=== PATIENT | male | born 1955 | race Caucasian/White ===

== ENCOUNTER 2018-06-07 11:35 | Inpatient (IN) | payer OTHER, SELFPAY ==
[2018-06-07] VITALS (26 sets, daily range): BP systolic 103–137; BP diastolic 73–97; PULSE 66–97; RESP 10–20; TEMP 36.4–37.3; O2SAT 95–100; BMI 25.0; BMI 24.6
--- NOTE | 2018-06-07 11:38 | EKG12_ITS ---
Test Reason : RIGHT SIDED EKG Blood Pressure : / mmHG Vent. Rate : 080 BPM Atrial Rate : 080 BPM P-R Int : 178 ms QRS Dur : 108 ms QT Int : 400 ms P-R-T Axes : 036 035 115 degrees QTc Int : 461 ms Normal sinus rhythm Anterolateral infarct , age undetermined Abnormal ECG Confirmed by MANUEL LUX, MARQUIS ([id number]), online content editor KIM PIERSON ([id number]) on 06/13/2018 4:15:39 PM Referred By: Kuldip Wooten Confirmed By:MARQUIS JACKSON MD
--- NOTE | 2018-06-07 11:44 | EKG12_ITS ---
Test Reason : CP Blood Pressure : / mmHG Vent. Rate : 076 BPM Atrial Rate : 076 BPM P-R Int : 178 ms QRS Dur : 116 ms QT Int : 426 ms P-R-T Axes : 057 041 098 degrees QTc Int : 479 ms Normal sinus rhythm with sinus arrhythmia Left ventricular hypertrophy with QRS widening and repolarization abnormality Anterior infarct , age undetermined Abnormal ECG Confirmed by MANUEL LUX, MARQUIS ([id number]), commercial production editor KIM PIERSON ([id number]) on 06/13/2018 4:16:08 PM Referred By: Kuldip Wooten Confirmed By:MARQUIS JACKSON MD
[2018-06-07] MEDS: TICAGRELOR 90 MG TABLET 180 MG PO (11:45)
[2018-06-07 11:46] LABS: Bedside Glucose 186 mg/dL (70-110)
[2018-06-07] MEDS: Heparin Injection (Vial) 5,000 UNIT/ML VIAL 4000 UNIT IV (11:47)
[2018-06-07] MEDS: Ondansetron 4 MG/2 ML Vial IV (11:48)
--- NOTE | 2018-06-07 11:50 | RAD_ITS ---
STUDY: X-RAY CHEST REASON FOR EXAM: Male, 62 years old. Left-sided chest pain TECHNIQUE: Single AP portable view of the chest. COMPARISON: None. FINDINGS: The lungs are clear and expanded. There is no demonstrated pleural abnormality. Normal size heart. Normal mediastinum and rafita. Normal visualized pulmonary arteries. Normal visualized aortic arch and descending thoracic aorta. Normal visualized thoracic spine. Normal visualized ribs, clavicles, and shoulders. There is no demonstrated abnormality of the visualized soft tissue structures of the upper abdomen. RAD/Chest 1 View (Portable) IMPRESSION: Normal x-ray examination of the chest. Electronically Signed: Isaias Granger DO at 12:24 EDT Tel , Service support ,
--- NOTE | 2018-06-07 11:51 | ED.RN ---
attempted to call pt's with number provided. [phone]
--- NOTE | 2018-06-07 11:55 | ED.RN ---
THROUGHOUT PATIENT CARE, PATIENT IS CONFUSED, REPETITIVE, AND NOT EFFECTIVELY ANSWERING QUESTIONS. PT UNSURE OF WHERE HE WORKS OR LIVES. PT MADE AWARE SEVERAL TIMES THAT HE WOULD BE TAKEN TO THE [facility]PER[facility] AND ATTEMPTS ARE BEING MADE TO CONTACT HIS .
[2018-06-07 12:06] LABS: Absolute Lymphocyte Count 1.91 X10^3/ul (0.83-4.51); Basophil# 0.03 X10^3/uL; Basophil% 0.4 % (0-1); Eosinophil# 0.13 X10^3/uL; Eosinophils% 1.6 % (0-5); Hemoglobin 15.2 g/dl (13.0-16.5); Lymphocyte # 1.91 X10^3/ul (4.0); Mean Corp Hgb Conc 35.3 g/gl (32-36); Mean Corpuscular Hgb 30.5 pg (27.0-32.0); Mean Corpuscular Volume 86.3 fL (80-94); Mean Platelet Vol. 9.2 fl (6.2-12.0); Monocyte# 0.83 X10^3/uL; Monocyte% 10.4 % (0-10); Neutrophil # 5.04 X10^3/uL (2.7-7.7); Neutrophil % 63.5 % (47-70); Platelet Count 338 K/mm3 (150-450); RBC Distribution Width SD 37.1 fl (35.1-43.9); Red Blood Count 4.98 M/mm3 (4.6-6.2)
[2018-06-07 12:07] LABS: POSITIVE COUNT NO; POSITIVE DIFFERENTIAL NO; POSITIVE MORPHOLOGY NO
[2018-06-07 12:13] LABS: Prothrombin Time (Protime)PT. 13.2 SECONDS (11.7-14.9)
[2018-06-07 12:14] LABS: Partial Thromboplast Time 23.6 Seconds (24.1-36.2)
[2018-06-07 12:17] LABS: Anion Gap 8 (5-15); BUN 13 mg/dL (7-18); BUN/Creat Ratio 10.1 RATIO (10-20); Calcium,Total 8.3 mg/dL (8.5-10.1); Chloride 102 mmol/L (98-107); Creatinine, Serum 1.29 mg/dL (0.70-1.30); EST Glomerular Filtration Rate 60 mL/min (>60); Est Glom Filt Rate - Afr Amer 73 mL/min (>60); Estimated Creatinine Clearance 62.09 ml/min; Glucose 214 mg/dL (74-106); Potassium 3.3 mmol/L (3.5-5.1); Sodium Level 136 mmol/L (136-145)
--- NOTE | 2018-06-07 12:18 | ED.DCSUM_ITS ---
- ER Visit Summary Date of Service: 06/07/18 Chief Complaint: Pain History of Present Illness: The patient is a 62 M with left side chest pain that started suddenly at work. Associated with nausea, sweats, and he appeared ashen per EMS. He never had this before. He said he has been having chest pain on a nd off recently. No history of coronary disease. No history of aortic or valvular disease. No history of blood clots. No recent hospitalization, travel, immobilization. Patient denies shortness of breath, cough, or sputum. Denies fevers. Denies pain anywhere else. Takes an aspirin daily. Physical Examination: Afebrile and vital signs are unremarkable. Patient is diaphoretic. Holding an emesis bag. Heart regular rate and rhythm. Lungs clear. Abdomen soft and nontender. Pulses strong and equal bilaterally. Calves soft and supple. Test Results: EKG showed sinus rhythm at a rate of 76. He does have elevation in aVR and V1 with lateral depression. Blood work and chest x-ray are pending. His mediastinum appears to be normal. Emergency Department Course and Treatment: Patient was discussed with Dr. Germain. I was concerned for ACS, but he did not meet STEMI criteria. Patient was treated with aspirin, Brilinta, heparin, Zofran, and nitroglycerin. He was admitted to the [facility] for further care. Treatment Plan: As above Disposition: Admission Impression: 1. Chest pain This note was generated with [employer] dictation software. It may contain incorrect words, spelling, and punctuation that were not noted in review of the chart prior to signing ED Disposition - Plan for ED Patient: Referrals: Care Physician,No Primary [Primary Care Provider] -
--- NOTE | 2018-06-07 13:37 | ECHOCS_ITS ---
Reason For Study: CAD/ASHD Procedure This was a 2D Doppler, Color Flow transthoracic echocardiogram. Contrast injection was performed. Exam performed portable in ICU/CCU. Left Ventricle Mildly dilated left ventricle. The estimated ejection fraction is 45-50 %. Stage 1 diastolic dysfunction. Mid-anteroseptal : Severely Hypokinetic. Anterior Gilbert : Akinetic. There are regional wall motion abnormalities as specified. Right Ventricle Normal size and thickness. Normal systolic function. Atria Normal left atrium. Normal right atrium. Normal atrial septum. Mitral Valve The mitral valve is structurally normal. No prolapse or stenosis seen. Tricuspid Valve Normal tricuspid valve. Unable to estimate RV systolic pressure due to inadequate jet, pulmonary artery pressure probably normal. Aortic Valve Bicuspid aortic valve. Severe diffuse aortic valve thickening. Severe focal aortic valve calcification. Severe restriction of the aortic valve. Severe aortic stenosis. Peak aortic valve gradient 85 mmHg. Mean aortic valve gradient 53 mmHg. Calculated aortic valve area (continuity equation) is 0.82 cm2. Pulmonic Valve Normal pulmonic valve. Great Vessels Normal aortic root. Normal arch. Normal inferior vena cava. Inferior vena cava collapse with sniff. Pericardium/Pleural No pericardial effusion. Medication Definity0.7ml given slow IV push to enhance endocardial definition. MMode/2D Measurements & Calculations LVIDd: 5.0 cm IVSd: 1.3 cm LVOT diam: 2.3 cm LVIDs: 3.6 cm LVPWd: 1.2 cm RVDd: 3.2 cm FS: 28.3 % LVOT area: 4.1 cm2 Ao root diam: 2.9 cm LAV(MOD-bp): 40.2 ml LVAd ap4: 34.9 cm2 LA dimension: 3.4 cm LAV(MOD-bp) Indexed: 20.5 ml/m2 EDV(MOD-sp4): 111.7 ml LAV(MOD-sp2): 31.9 ml EDV(sp4-el): 115.0 ml LAV(MOD-sp4): 41.2 ml LVAs ap4: 25.5 cm2 ESV(MOD-sp4): 64.2 ml ESV(sp4-el): 66.5 ml EF(MOD-sp4): 42.5 % EF(sp4-el): 42.1 % SV(MOD-sp4): 47.5 ml SV(sp4-el): 48.5 ml LA A4 area: 16.3 cm2 RA A4 area: 11.4 cm2 Doppler Measurements & Calculations MV E max guillermo: 53.1 cm/sec Lat Peak E' Guillermo: 3.4 cm/sec Med Peak E' Guillermo: 4.8 cm/sec MV A max guillermo: 75.4 cm/sec E/E' lat: 15.5 E/E' med: 11.0 MV E/A: 0.70 Ao V2 max: 459.8 cm/sec LV V1 max: 90.9 cm/sec SV(LVOT): 96.6 ml Ao max P.6 mmHg LV V1 max P.3 mmHg Ao V2 mean: 348.0 cm/sec LV V1 mean P.1 mmHg Ao mean P.3 mmHg LV V1 mean: 67.9 cm/sec Ao V2 VTI: 112.4 cm LV V1 VTI: 23.3 cm MARGOTH(I,D): 0.86 cm2 MARGOTH(V,D): 0.82 cm2 PA V2 max: 79.3 cm/sec Interpretation Summary Mildly dilated left ventricle. The estimated ejection fraction is 45-50 %. Mid-anteroseptal : Severely Hypokinetic. Anterior Gilbert : Akinetic. Stage 1 diastolic dysfunction. Unable to estimate RV systolic pressure due to inadequate jet, pulmonary artery pressure probably normal. Bicuspid aortic valve. Severe restriction of the aortic valve. Severe aortic stenosis. Peak aortic valve gradient 85 mmHg. Mean aortic valve gradient 53 mmHg. Calculated aortic valve area (continuity equation) is 0.82 cm2. The study was technically difficult. Contrast injection was performed. There is no comparison study available. Ordering Physician: Henrry Germain Performed By: Sarah Mirza, SALIMA, RVT
--- NOTE | 2018-06-07 13:37 | EKG12_ITS ---
Test Reason : POST PCI Blood Pressure : / mmHG Vent. Rate : 069 BPM Atrial Rate : 069 BPM P-R Int : 168 ms QRS Dur : 096 ms QT Int : 450 ms P-R-T Axes : 052 062 105 degrees QTc Int : 482 ms Normal sinus rhythm Left ventricular hypertrophy with repolarization abnormality Anterior infarct , age undetermined Abnormal ECG When compared with ECG of 07-JUN-2018 11:38, MANUAL COMPARISON REQUIRED, DATA IS UNCONFIRMED Confirmed by MANUEL LUX, MARQUIS ([id number]), business editor KIM PIERSON ([id number]) on 06/13/2018 5:23:37 PM Referred By: Kuldip Wooten Confirmed By:MARQUIS JACKSON MD
--- NOTE | 2018-06-07 13:38 | CL.I_ITS ---
Patient Name: ODALIS GRAFF Study Date: 06/07/2018 Performing: Henrry Germain MD Ht: 70.07 inches 178 cm : 1955 Wt: 174.17 lbs 79 kg Age: 62 Gender: male BSA: 1.97 PROCEDURE(S) PERFORMED PF99-UBI/COR/LV XA51-CVW W OR WO PTCA, SINGLE CORONARY ARTERY CLINICAL PROFILE AND CO-MORBIDITIES Patient presents with NSTEMI for urgent cardiac cath Indications: ACS > 24 hrs, Suspected CAD, New Onset Angina <= 2 months Heart Failure: None Stress/Imaging Stress/Image Study Performed: No Angina Classification Anginal Classification w/in 2 Weeks: CCS IV CAD Presentations: Unstable angina. Non-STEMI. Symptom onset Date/Time: 06/07/2018 Time Not Availa ble Comorbidities/Risk Factors: Hypertension Dyslipidemia CONCLUSIONS Normal LV size, wall motion,and systolic function Normal Left Ventricular systolic function LVEF: by LV gram 65 % Elevated Left Ventricular End Diastolic Pressure Successful PTCA/HAFSA mid LAD with a 2.5 x 20 Promus Synergy, post dilated with a 3.0 x 12 NC Balloon a t 9 lucero; 75%-->0%, no dissection. Successful PTCA/HAFSA proximal LAD with a 3.0 x 16 Promus Synergy stent, post dilated with a 3.0 x 12 N C balloon; 85%-->0%, no dissection. Successful PCI with PTCA to the ostial DIAG#2 with a 2.0 x 12 ballloon after mid LAD stent placed; 85 %-->40%, no dissection. No evidence of proximal LAD stent encroachment on ostial LCX with passage of 2.0 balloon. RECOMMENDATIONS Referred for immediate PCI Highly recommend quitting all tobacco products Follow up with primary bench tool maker Risk factor modification ASA Indefinitley Plavix for at least 12 months Routine post interventional care Refer for Outpatient Cardiac Rehab Manual sheath removal per protocol 2D echo to eval aortic valve; ?Bicuspid Aortic valve. Manual sheath removal given pt's shallow groin. DESCRIPTION OF PROCEDURE The patient arrived to the procedure lab. The risks and benefits of the procedure as well as a full d escription of our services here and lack of surgical backup were fully explained to the patient and/o r their significant other prior to the catheterization. The Timeout was completed, verifying the niesha ect patient and procedure. The patient's procedural site was prepped and draped in the usual fashion. Local anesthetic was given subcutaneously to right groin region with Lidocaine 2%. Using a modified Seldinger technique, arterial access was obtained via the right femoral artery, a 4Fr sheath was inse rted. Left Coronary Artery selective angiography was performed in multiple views using a 4 Fr. JL5 c atheter. Right Coronary Artery selective angiography was then performed in multiple views using a 4 F r. 3DRC catheter. Left Ventriculography was performed in MATTHEW projection using a 6 Fr. Pigtail cathete r. LV to AO pullback pressures were then recordedThe images were reviewed and options discussed. A decision was then made to proceed with an Intervention, IVUS or other adjunct procedure. EBU 3.5 Guide catheter was inserted and engaged into the LCA. BMW Guide wire was advanced to the LAD. 2x12 Emerge Balloon catheter was inserted. Balloon catheter was advanced across lesion in the LA D, distal. PTCA balloon inflated at 6 atms for 10 secs. Balloon catheter was repositioned to addition al lesion in the LAD, proximal. PTCA balloon inflated at 7 atms for 8 secs. PTCA balloon inflated at 7 atms for secs. 2x12 Emerge Balloon catheter was inserted. Balloon catheter was repositioned to add itional lesion in the second diagonal, ostial. PTCA balloon inflated at 6 atms for 8 secs. Angiogram performed post balloon dilatation. 2.5x20 Synergy Drug Eluting stent was inserted. Drug Eluting stent was advanced across the lesion in the LAD, mid. 3x12 NC Emerge Balloon catheter was inserted. Balloo n catheter was inserted post stent. Angiogram performed post balloon dilatation. 2x12 Emerge Balloon catheter was inserted. Balloon catheter was advanced across lesion in the second diagonal, ostial. PTCA balloon inflated at 6 atms for 30 secs. PTCA balloon inflated at 6 atms for 45 secs. BMW Guide wire was repositioned from Diagonal to the Circumflex 3x16 Synergy Drug Eluting stent was inse rted. Drug Eluting stent was advanced across the lesion in the LAD, proximal. Angiogram performed pos t stent deployment. 3x12 NC Emerge Balloon catheter was inserted. Balloon catheter was inserted post stent. Balloon catheter was advanced across lesion in the LAD, proximal. PTCA balloon inflated at 10 atms for 12 secs. CORONARY ANGIOGRAPHY DOMINANCE: Right Dominant LEFT HEART ASSESSMENT Left Ventricular Ejection Fraction: by LV Gram 65 % Normal Left Ventricular systolic function LVEDP: 26 mmHg Normal LV wall motion LEFT MAIN: Angiographically normal LEFT ANTERIOR DECENDING ARTERY: PROX LAD: 85 % Stenosis MID LAD: 75 % Stenosis DIAGONAL 2: Ostial - 75 % Stenosis CIRCUMFLEX ARTERY: MID CIRC: 50 % Stenosis RIGHT CORONARY ARTERY: Angiographically normal COLLATERAL FLOW: Collateral flow from Right to Left VALVE FINDINGS: Aortic Valve Stenosis - moderate INTERVENTION INFORMATION LESION SITE: LAD (Mid) Lesion Complexity: High/C, lesion at bifurcation: Yes, thrombus present: No, lesion length: 20 mm, cu lprit lesion: No Pre Stenosis: 75 % Pre intervention GRAEME flow: 3 PROCEDURE: Drug Eluting Stent with pre and post dilatation Post Stenosis: 0 % Post intervention GRAEME flow: 3 Lesion Devices: Duffy .014 BMW Mcintosh Straight 190cm Medtronic 6 Fr EBU3.5 100cm Guide Catheter Duffy .014 BMW Mcintosh Straight 190cm Teodoro Sci NC EMERGE MR 2.00x12 BALLOON Teodoro Sci Synergy MR HAFSA 2.50x20 Teodoro Sci NC EMERGE MR 3.00x12 BALLOON LESION SITE: LAD (Proximal) Lesion Complexity: High/C, lesion at bifurcation: No, thrombus present: No, lesion length: 16 mm, cul prit lesion: Yes Pre Stenosis: 85 % Pre intervention GRAEME flow: 3 PROCEDURE: Drug Eluting Stent with pre and post dilatation Post Stenosis: 0 % Post intervention GRAEME flow: 3 Lesion Devices: Medtronic 6 Fr EBU3.5 100cm Guide Catheter Duffy .014 BMW Mcintosh Straight 190cm Teodoro Sci NC EMERGE MR 2.00x12 BALLOON Teodoro Sci NC EMERGE MR 3.00x12 BALLOON Teodoro Sci Synergy MR HAFSA 3.00x16 LESION SITE: 2nd Diagonal (Ostial) Lesion Complexity: Non-High/Non-C, lesion at bifurcation: Yes, thrombus present: No, lesion length: 8 mm, culprit lesion: No Pre Stenosis: 75 % Pre intervention GRAEME flow: 3 PROCEDURE: Balloon Angioplasty 40 % Post intervention GRAEME flow: 3 Lesion Devices: Medtronic 6 Fr EBU3.5 100cm Guide Catheter Teodoro Sci NC EMERGE MR 2.00x12 BALLOON COMPLICATIONS No Complications PROCEDURE MEDICATIONS Oxygen: 2 L/min via nasal cannula Oxygen: 4 L/min via nasal cannula Heparin 6000 unit(s) IV 06/07/2018 12:14:29 Nitro 200 mcg IC 06/07/2018 12:32:33 Nitro 200 mcg IC 06/07/2018 12:32:33 Nitro 200 mcg IC 06/07/2018 12:41:45 Potassium Chloride 10 mEq in 100cc NS 06/07/2018 12:22:28 IV Bolus: .9 NaCl 1000 ml total 06/07/2018 13:27:09 SUMMARY OF HEMODYNAMIC DATA Time AIR REST ECG 12:03:30 AO 114/90 (101) SA 12:11:03 LV 167/-8, 26 13:11:37 LV 166/-7, 22 13:11:44 LVp 165/-6, 23 13:11:51 AOp 101/64 (79) 13:11:56 Signed By Henrry Germain MD On 06/07/2018 13:37:00 Henrry Germain MD
--- NOTE | 2018-06-07 13:42 | HP.PCM_ITS ---
Problem List (1) Acute coronary syndrome Status: Acute (2) Prostate cancer Status: Chronic (3) Aortic stenosis Status: Acute History of Present Illness Date of Admission: 06/07/18 Chief Complaint: Chest pain The patient is a 62 year old M with history of prostate cancer in remission came to ED when he got sudden onset of chest pain at work. Patient did also associated nausea, sweating, dizziness and felt mild shortness of breath. Patient has been having chest pain on and off for last and had appointment for scheduled stress test 2-3 weeks this week. In ED, EKG shows normal sinus rhythm with ST elevation in aVR with ST depression V4 to V6 and inferior leads. Voice And Data Technician was consulted and patient was taken to Communications Consultant given the patient did not meet criteria for STEMI. basic lab work shows troponin 0 0.252, glucose 186. Coronary angiogram showed EF 65% with normal LV systolic function. Proximal LAD 85%, mid LAD 75%, diagonal 2 ostial 75%. Mid circumflex 50%. Left Main normal RCA normal. Collateral flow from right to left. Patient had stents in mid LAD and proximal LAD and second diagonal. Patient is further being admitted in ICU. Past Medical History Past Medical History (Chronic Problems): Chronic Problems Prostate cancer (Chronic) Allergies Penicillins Allergy (Verified 06/07/18 11:36) Hives Home Medications: Ambulatory Orders Medication Instructions Recorded Aspirin [Aspirin, Baby] 81 mg PO DAILY@0800 06/07/18 Smoking Status: Former smoker Review of Systems Constitutional: Denies: Chills, Fever, Weight Change HEENT: Denies: Head Aches, Sinus Congestion, Sinus Drainage Cardiovascular: Reports: Chest Pain. Denies: Palpitations Respiratory: Denies: Cough, Shortness of breath at rest, Sputum production Gastrointestinal: Denies: Abdominal Pain, Nausea, Vomiting Genitourinary: Denies: Dysuria Musculoskeletal: Denies: Joint Pain, Joint Tenderness Skin: Denies: Rash, Wounds Neurological: Denies: Numbness, Tingling, Focal weakness Psychiatric: Denies: Anxiety, Depression, Homicidal Ideations, Suicidal Ideations Hematologic/ Lymphatic: Denies: Easy Bruising, Easy Bleeding VTE Information - Inpt Only VTE Present on Admission: No VTE Mechan Device Prophylaxis: SCD's VTE Pharm Prophylaxis ordered?: Yes Patient Problems: Active and Suspected Problems Acute coronary syndrome (Acute) Aortic stenosis (Acute) - Physical Exam General: Alert, Oriented x3, Cooperative HEENT: Atraumatic, PERRLA, EOMI, Normocephalic Neck: Supple, No JVD, Negative Carotid Bruits Lungs: Clear to auscultation, Normal air movement Cardiovascular: Regular rate, Regular Rhythm, Normal S1, Normal S2, Murmur - Mid systolic murmur with radiation to carotids. Abdomen: Bowel Sounds Present, Soft, Non Tender, Non-Distended Extremities: No edema, Capillary Refill Less than 3 Seconds Skin: No rashes, No breakdown Musculoskeletal: No Tenderness to Palpation of Joints or Extremities Lymphatic: No Cervical, Supraclavicular, or Inguinal Adenopathy Neurological: Cranial nerves II-XII grossly intact, Deep Tendon Reflexes 2+/4 and Symmetrical, Neuro grossly intact Psych/Mental Status: Normal Affect, Appropriate Vital Signs Temp Pulse Resp BP Pulse Ox 97.6 F L 76 12 137/95 H 100 06/07/18 11:37 06/07/18 11:37 06/07/18 11:37 06/07/18 11:37 06/07/18 11:48 Oxygen Flow Rate (L/min) 4 Oxygen Delivery Method Nasal Cannula Weight: 174 lb 6.4 oz Body Mass Index (BMI) 25.0 Laboratory Tests Past 24 Hrs 06/07/18 06/07/18 06/07/18 11:39 11:39 11:39 WBC 8.0 RBC 4.98 Hgb 15.2 Hct 43.0 MCV 86.3 MCH 30.5 MCHC 35.3 RDW 12.0 RDW Differential 37.1 Plt Count 338 MPV 9.2 Immature Gran % (Auto) 0.100 Neut % (Auto) 63.5 Lymph % (Auto) 24.0 [place] % (Auto) 10.4 H Eos % (Auto) 1.6 Baso % (Auto) 0.4 Absolute Neuts (auto) 5.0 Absolute Lymphs (auto) 1.91 Total Counted Not Reportable PT 13.2 INR 1.0 APTT 23.6 L Sodium 136 Potassium 3.3 L Chloride 102 Carbon Dioxide 26.0 Anion Gap 8 BUN 13 Creatinine 1.29 Estim Creat Clear Calc 62.09 Est GFR (MDRD) Af Amer 73 Est GFR (MDRD) Non-Af 60 BUN/Creatinine Ratio 10.1 Glucose 214 H Calcium 8.3 L Troponin I 0.252 H POC Glucose 06/07/18 11:42 POC Glucose 186 H Assessment/Plan All Active Problems Acute coronary syndrome (Acute) Aortic stenosis (Acute) he patient is a 62 year old M with history of prostate cancer in remission came to ED when he got sudden onset of chest pain at work. Patient did also associated nausea, sweating, dizziness and felt mild shortness of breath. Patient has been having chest pain on and off for last and had appointment for scheduled stress test 2-3 weeks this week. In ED, EKG shows normal sinus rhythm with ST elevation in aVR with ST depression V4 to V6 and inferior leads. Voice And Data Technician was consulted and patient was taken to Communications Consultant given the patient did not meet criteria for STEMI. basic lab work shows troponin 0 0.252, glucose 186. Coronary angiogram showed EF 65% with normal LV systolic function. Proximal LAD 85%, mid LAD 75%, diagonal 2 ostial 75%. Mid circumflex 50%. Left Main normal RCA normal. Collateral flow from right to left. Patient had stents in mid LAD and proximal LAD and second diagonal. Patient is further being admitted in ICU. 1. Acute coronary syndrome, non-STEMI: Patient is being admitted in ICU. On aspirin, Brilinta, beta-pierre and statin. 2D echo is being ordered. Fasting lipid profile, TSH are ordered. There is sheath in place in the right femoral artery. 2. Hyperglycemia: A1c tomorrow a.m. Glucose is 214 although patient denies history of diabetes mellitus type 2. 3. Mild hypokalemia: K3.3; potassium being replaced and monitored. 4. New diagnosis of aortic stenosis: Echo and further anatomic and functional definition of aortic stenosis. 5. Prostate cancer status post radiotherapy: Patient gets his care for prostate cancer in [facility]. He was told he is in remission and had possible brachytherapy in recent past. 6. DVT prophylaxis: On Lovenox 40 mg subcu daily; starting 24 hours after the procedure Clinical Impression(s) from Imaging Studies Chest X-Ray 06/07/18 11:50 IMPRESSION: Normal x-ray examination of the chest. Laboratory Results 06/07/18 11:39: WBC 8.0, RBC 4.98, Hgb 15.2, Hct 43.0, MCV 86.3, MCH 30.5, MCHC 35.3, RDW 12.0, RDW Differential 37.1, Plt Count 338, MPV 9.2, Immature Gran % (Auto) 0.100, Neut % (Auto) 63.5, Lymph % (Auto) 24.0, [place] % (Auto) 10.4 H, Eos % (Auto) 1.6, Baso % (Auto) 0.4, Absolute Neuts (auto) 5.0, Absolute Lymphs (auto) 1.91, Total Counted Not Reportable 06/07/18 11:39: PT 13.2, INR 1.0, APTT 23.6 L 06/07/18 11:39: Sodium 136, Potassium 3.3 L, Chloride 102, Carbon Dioxide 26.0, Anion Gap 8, BUN 13, Creatinine 1.29, Estim Creat Clear Calc 62.09, Est GFR (MDRD) Af Amer 73, Est GFR (MDRD) Non-Af 60, BUN/Creatinine Ratio 10.1, Glucose 214 H, Calcium 8.3 L, Troponin I 0.252 H 06/07/18 11:42: POC Glucose 186 H Code Visit Inpatient E&M: 44880 Init Hosp L3
[2018-06-07] MEDS: 0.9% Normal Saline 1,000 ML 150 ML IV (14:13)
--- NOTE | 2018-06-07 15:19 | CHAPLAIN ---
Type of Pastoral Visit _x__ Initial Visit ___ Follow-up Visit ___ On-call Visit ___ General Patient Visit ___ Spiritual Assessment ___ Family Conference ___ Bereavement ___ Rapid Response ___ Code Blue ___ Other (describe below) Pastoral Care Referral From _x__ Patient _x__ Family _x__ Nurse ___ Physician ___ Senior Site Manager ___ Professor Of Floriculture ___ Other (describe below) Sacrament/Intervention _x__ Active listening ___ Anointing ___ Temple ___ Bereavement ___ Communion ___ Ev exploration ___ ___ Life review _x__ Prayer ___ Reconciliation ___ Sacrament of Sick _x__ Supportive presence ___ Wedding ___ Other (describe below) Pastoral Comments met son of patient when he came to ED and then this wind project manager escorted him to ICU; met with other family members and then with patient following his procedure; offered support; family is emotionally shaken as these events came from out of nowhere; patient requests that a prayer be said for him; future support offered as desired
[2018-06-07 15:50] LABS: ACT Activated Clotting Time 153 sec (74-137)
[2018-06-07] MEDS: Atorvastatin Calcium 80 MG Tablet PO (22:19)
[2018-06-07] MEDS: TICAGRELOR 90 MG TABLET PO (22:19)
[2018-06-07] MEDS: Metoprolol Tartrate 25 MG Tablet 12.5 MG PO (22:19)
[2018-06-07] MEDS: Acetaminophen 325 MG Tablet 650 MG PO (22:23)
--- NOTE | 2018-06-07 22:45 | NURSING ---
Pt states feels like his chest has been raked over, denies pressure or pain, just that it feels different. 12 lead ekg ordered.
--- NOTE | 2018-06-07 22:59 | EKG12_ITS ---
Test Reason : RHYTHM CHANGE Blood Pressure : / mmHG Vent. Rate : 081 BPM Atrial Rate : 081 BPM P-R Int : 184 ms QRS Dur : 100 ms QT Int : 430 ms P-R-T Axes : 067 081 117 degrees QTc Int : 499 ms Normal sinus rhythm Septal infarct , age undetermined ST & Marked T wave abnormality, consider anterolateral ischemia Abnormal ECG When compared with ECG of 07-JUN-2018 13:58, MANUAL COMPARISON REQUIRED, DATA IS UNCONFIRMED Confirmed by MANUEL LUX, MARQUIS ([id number]), assistant editor KIM PIERSON ([id number]) on 06/13/2018 5:23:21 PM Referred By: Kuldip Wooten Confirmed By:MARQUIS JACKSON MD
--- NOTE | 2018-06-07 23:38 | NURSING ---
12 lead ekg prior to procedure, post procedure and current ekg sent via [facility] to Dr Sosa.
[2018-06-08] VITALS (24 sets, daily range): BP systolic 98–122; BP diastolic 66–86; PULSE 54–70; RESP 12–22; TEMP 36.6–37.2; O2SAT 94–98
[2018-06-08 05:19] LABS: Hemoglobin 14.8 g/dl (13.0-16.5); Mean Corp Hgb Conc 35.2 g/gl (32-36); Mean Corpuscular Hgb 30.5 pg (27.0-32.0); Mean Corpuscular Volume 86.6 fL (80-94); Mean Platelet Vol. 9.3 fl (6.2-12.0); Platelet Count 273 K/mm3 (150-450); RBC Distribution Width CV 12.4 % (11.6-14.6); RBC Distribution Width SD 38.3 fl (35.1-43.9); Red Blood Count 4.85 M/mm3 (4.6-6.2); White Blood Count 10.5 K/mm3 (4.4-11.0)
[2018-06-08 05:24] LABS: Scan Indicated on CBC? Y/N NO
[2018-06-08 05:50] LABS: Hemoglobin A1c 5.5 % (4.2-6.3)
[2018-06-08 05:51] LABS: Anion Gap 8 (5-15); BUN 9 mg/dL (7-18); BUN/Creat Ratio 9.4 RATIO (10-20); Calcium,Total 8.2 mg/dL (8.5-10.1); Chloride 107 mmol/L (98-107); Cholesterol 155 mg/dL (200); Creatinine, Serum 0.96 mg/dL (0.70-1.30); EST Glomerular Filtration Rate 85 mL/min (>60); Est Glom Filt Rate - Afr Amer 103 mL/min (>60); Estimated Creatinine Clearance 83.43 ml/min; Glucose 109 mg/dL (74-106); High Density Lipoprotein 39 mg/dL; Potassium 4.3 mmol/L (3.5-5.1); Sodium Level 139 mmol/L (136-145); Thyroid Stim Hormone (TSH) 1.07 uIU/mL (0.358-3.74); Triglycerides 127 mg/dL; Very Low Density Lipoprotein 25 mg/dL (5-40)
[2018-06-08 07:15] LABS: ACT Activated Clotting Time 213 sec (74-137)
[2018-06-08 07:15] LABS: ACT Activated Clotting Time 224 sec (74-137)
[2018-06-08 07:15] LABS: ACT Activated Clotting Time 175 sec (74-137)
--- NOTE | 2018-06-08 07:37 | CRPHASE1 ---
Patient Communication PHII Cardiac Rehab Discussed with Patient:: Yes Guide to Cardiac Rehab Given to Patient:: Yes Cardiac Rehab Facility Choice List Given to Patient:: Yes - LIVES IN [facility] Choice [facility] CR PHII:: Communication Given to CR, Refer to [facility] Choice Program Other:: Communication Given to CR, With permission faxed order and referral information Outpatient Services Director:: Henrry Germain Refer Phase II Cardiac Rehab:: Yes Sessions:: 36 sessions - 3 days/wk, 12 weeks Phase I Charge:: Level I - Education Risk Factors/Lifestyle Smoking Status: Never smoker Hx Hypertension: No Hx Diabetes Mellitus Type 2: No Caffeine: Yes Substance Abuse: Yes - BEER Laboratory Values: Cardiac Rehab Phase I Labs Hemoglobin A1c 5.5 % (4.2-6.3) 06/08/18 05:10 Triglycerides 127 mg/dL (-199) 06/08/18 05:10 Cholesterol 155 mg/dL (200) 06/08/18 05:10 LDL Cholesterol 91 mg/dL (0-130) 06/08/18 05:10 HDL Cholesterol 39 mg/dL (40-) L 06/08/18 05:10 Phase I Education Given On:: [place], Antiplatelet medication Issues Affecting Care:: None Knowledge of Condition:: Yes Hospital Course Pain Description: Sharp, Burning Cardiac Cath Date:: 06/07/18 Medical/Surgical History [place]:: Yes Angina:: Yes Diabetes Type II:: No PTCA:: Yes Discharge/Home/Social Eval Discharge Disposition: Home Marital Status: Single Cardiac Rehabilitation Info Cardiac Rehabilitation Program Information: Cardiac Rehabilitation is important for patients like you who are recovering from a heart problem. Cardiac rehabilitation programs are recognized as integral to the continued care of the patient with coronary heart disease. The cardiac rehabilitation program is designed to optimize a patient's physical, psychological, and social functioning. Health respiratory care assistant work in cardiac rehabilitation programs and assist you with getting the treatments you need to get stronger and healthier - like exercise, healthy eating habits, and medications. Cardiac rehabilitation has been show to help people with heart problems live longer and have better life enjoyment than people who do not go to cardiac rehabilitation. Please contact the Cardiac Rehabilitation Program at [facility] at in two weeks if you have not heard from them.
--- NOTE | 2018-06-08 07:42 | CRPHASE1_ITS ---
Patient Communication PHII Cardiac Rehab Discussed with Patient:: Yes Guide to Cardiac Rehab Given to Patient:: Yes Cardiac Rehab Facility Choice List Given to Patient:: Yes - LIVES IN [facility] Choice [facility] CR PHII:: Communication Given to CR, Refer to [facility] Choice Program Other:: Communication Given to CR, With permission faxed order and referral information Flap Lining Binder:: Henrry Germain Refer Phase II Cardiac Rehab:: Yes Sessions:: 36 sessions - 3 days/wk, 12 weeks Phase I Charge:: Level I - Education Risk Factors/Lifestyle Smoking Status: Never smoker Hx Hypertension: No Hx Diabetes Mellitus Type 2: No Caffeine: Yes Substance Abuse: Yes - BEER Laboratory Values: Cardiac Rehab Phase I Labs Hemoglobin A1c 5.5 % (4.2-6.3) 06/08/18 05:10 Triglycerides 127 mg/dL (-199) 06/08/18 05:10 Cholesterol 155 mg/dL (200) 06/08/18 05:10 LDL Cholesterol 91 mg/dL (0-130) 06/08/18 05:10 HDL Cholesterol 39 mg/dL (40-) L 06/08/18 05:10 Phase I Education Given On:: [place], Antiplatelet medication Issues Affecting Care:: None Knowledge of Condition:: Yes Hospital Course Pain Description: Sharp, Burning Cardiac Cath Date:: 06/07/18 Medical/Surgical History [place]:: Yes Angina:: Yes Diabetes Type II:: No PTCA:: Yes Discharge/Home/Social Eval Discharge Disposition: Home Marital Status: Single Cardiac Rehabilitation Info Cardiac Rehabilitation Program Information: Cardiac Rehabilitation is important for patients like you who are recovering from a heart problem. Cardiac rehabilitation programs are recognized as integral to the continued care of the patient with coronary heart disease. The cardiac rehabilitation program is designed to optimize a patient's physical, psychological, and social functioning. Health intensive care anaesthetist work in cardiac rehabilitation programs and assist you with getting the treatments you need to get stronger and healthier - like exercise, healthy eating habits, and medications. Cardiac rehabilitation has been show to help people with heart problems live longer and have better life enjoyment than people who do not go to cardiac rehabilitation. Please contact the Cardiac Rehabilitation Program at [facility] at in two weeks if you have not heard from them.
--- NOTE | 2018-06-08 07:42 | CRPH1.INSTRU ---
General Education CAD and cardiac anatomy and function:: Patient communicates acknowledgment Explanation of diagnoses and procedures:: Patient communicates acknowledgment Sign/Symptoms of [place]:: Patient communicates acknowledgment Antiplatelet therapy: Patient communicates acknowledgment Emergency procedures and activation of EMS: Patient communicates acknowledgment Compliance of all prescribed medications: Patient communicates acknowledgment Smoking Patient Nicotine/Smoking Risk Factors Are:: Non-smoker Dyslipidemia Recommendations Include:: Lipid profile not available Overweight/Obesity Overweight/Obesity:: Patient communicates acknowledgment Hypertension Patient Hypertension Risk Factors Are:: No documented hx of HTN Heart Disease Heart Disease Response Code:: Patient communicates acknowledgment Diabetes Patient Diabetes Risk Factors Are:: No documented hx of diabetes Metabolic Syndrome Recommendations Include:: Does not meet criteria Metabolic Syndrome Response Code:: Patient communicates acknowledgment Sedentary Sedentary Response Code:: Patient communicates acknowledgment Stress Patient Stress Risk Factors Are:: Patient denies stress as a risk factor
--- NOTE | 2018-06-08 08:47 | PN.CARD_ITS ---
Subjectve: Patient doing very well this morning. Had an episode of atypical nonexertional chest pain last evening, EKG performed showed normal sinus rhythm with anterior T wave inversion indicating resolving ischemic episode. Telemetry showed normal sinus rhythm with rare PVCs. Right groin initially had difficulty maintaining hemostasis requiring FemoStop placement for at least 6 hours time. This morning his right groin is clean/dry/intact without evidence of thrills, bruits or hematoma. EKG shows normal sinus rhythm with anterior T wave inversion with resolving anterior ischemia. Hemoglobin and creatinine are within nominal limits. Objective: Vital Signs Temp Pulse Resp BP Pulse Ox 98.6 F 66 16 122/81 H 95 06/08/18 05:00 06/08/18 07:13 06/08/18 06:40 06/08/18 06:40 06/08/18 06:40 Oxygen Flow Rate (L/min) 4 Oxygen Delivery Method Room Air Weight: 174 lb 9.698 oz Body Mass Index (BMI) 24.6 Intake and Output for Last 24 Hours 06/06/18 06/07/18 06/08/18 23:59 23:59 23:59 Intake Total 1296 / 1296 200 / 200 Output Total 1300 / 1300 0 / 0 Balance -4 / -4 200 / 200 General: Awake, Alert, Oriented x 3 HEENT: PERRL, EOMI, Sclera Non Icteric Neck: Supple, Good ROM, No Lymph Node Enlargement Lungs: Clear to auscultation Cardiovascular: Regular Rhythm, Normal S1, Normal S2, No Murmurs, No Rubs, No Gallops Vascular: No Carotid Bruits, Normal Femoral Pulses, Normal Radial Pulses, Normal Dorsalis Pedal Pulse, Normal Posterior Tibial Pulses Abdomen: Bowel Sounds Present, Soft, Non Tender, No HSM, No Organomegaly Extremities: No Cyanosis, No Clubbing, No edema Neurological: No Focal Motor or Sensory Deficit 06/07/18 11:39: WBC 8.0, RBC 4.98, Hgb 15.2, Hct 43.0, MCV 86.3, MCH 30.5, MCHC 35.3, RDW 12.0, RDW Differential 37.1, Plt Count 338, MPV 9.2, Immature Gran % (Auto) 0.100, Neut % (Auto) 63.5, Lymph % (Auto) 24.0, [place] % (Auto) 10.4 H, Eos % (Auto) 1.6, Baso % (Auto) 0.4, Absolute Neuts (auto) 5.0, Total Counted Not Reportable 06/07/18 11:39: PT 13.2, INR 1.0, APTT 23.6 L 06/07/18 11:39: Sodium 136, Potassium 3.3 L, Chloride 102, Carbon Dioxide 26.0, Anion Gap 8, BUN 13, Creatinine 1.29, Est GFR (MDRD) Af Amer 73, Est GFR (MDRD) Non-Af 60, BUN/Creatinine Ratio 10.1, Glucose 214 H, Calcium 8.3 L, Troponin I 0.252 H 06/08/18 05:10: WBC 10.5, RBC 4.85, Hgb 14.8, Hct 42.0, MCV 86.6, MCH 30.5, MCHC 35.2, RDW 12.4, RDW Differential 38.3, Plt Count 273, MPV 9.3 06/08/18 05:10: Sodium 139, Potassium 4.3, Chloride 107, Carbon Dioxide 24.0, Anion Gap 8, BUN 9, Creatinine 0.96, Est GFR (MDRD) Af Amer 103, Est GFR (MDRD) Non-Af 85, BUN/Creatinine Ratio 9.4 L, Glucose 109 H, Calcium 8.2 L, Triglycerides 127, Cholesterol 155, LDL Cholesterol 91, VLDL Cholesterol 25, HDL Cholesterol 39 L 06/08/18 05:10: Hemoglobin A1c 5.5 Rhythm: EKG: ECHO: Stress Test: Cardiac Cath: PCI: CT Surgery: Holter monitor: EPS: PPM: CXR: Chest CT Scan: Medical Necessity - Tobacco Use Smoking Status: Never smoker Assessment/Plan 1. Coronary artery disease: The patient presented yesterday with progressively worsening chest pain over the last several days with acute coronary syndrome, dynamic EKG changes, and urgent left heart catheterization with successful complex angioplasty and stenting x2 to the mid LAD and proximal LAD. He also underwent balloon angioplasty only of the ostium of the diagonal branch straddled by the mid LAD stent. He has a remaining 40-50% mid left circumflex stenosis which will be adjudicated by stress testing in the near future. Given the patient's EKG changes, PVCs on telemetry, chest pain last evening, and challenges with maintaining hemostasis in his groin last evening, I recommended the patient be referred to stepdown unit for 1 more day. He will continue baby aspirin, Brilinta, Lopressor, and Lipitor. We are awaiting the results of a 2D echo with Doppler to assess his LV function. We will begin cozaar 25mg po daily for elevated LVEDP. 2. Aortic stenosis: Patient had a proximally 50 mm peak to peak gradient across his aortic valve with pullback on pigtail catheter yesterday. He has 2+ carotid upstrokes with significant referral of systolic ejection murmur to his carotids as well as a 3/6 systolic ejection murmur best heard at the upper right sternal border. We await the echocardiogram to assess his LV function, pulmonary pressures, and aortic stenosis. If the patient has significant aortic stenosis he may require aortic valve replacement prior to cardiac rehab. 3. Hyperlipidemia: Continue Lipitor therapy. Repeat lipid profile in 6 weeks time. 4. The patient be transferred to stepdown unit. Thank you very much for the opportunity to participate in the cardiac care of your patient. Code Visit Inpatient E&M: 18948 Subs Hosp L2
--- NOTE | 2018-06-08 09:25 | PCM.PN.HOSP ---
Patient Problems: Active and Suspected Problems (Last Updated 06/07/18 @ 18:18 by Christina Pierson) Acute coronary syndrome (Acute) Subjective: Patient seen and examined. He was admitted with a complaint of chest pain and was found to have non-STEMI. He went straight to cardiac cath which showed 85% stenosis in the proximal LAD and 75% stenosis in the mid LAD as well as 75% stenosis in the ostium of the diagonal artery and 50% stenosis in the mid circumflex artery. He had drug eluting stent placement in the proximal and mid LAD as well as second diagonal artery. Patient has no complaints this morning. He did have some mild chest pain overnight and also there was difficulty securing hemostasis in the right groin area. This required application of a firm stop for at least 6 hours. There is no bleeding now. He has no complaints and feels well. Review of systems otherwise negative. Labs and vitals reviewed. Vitals/I&O's: Vital Signs Temp Pulse Resp BP Pulse Ox 97.9 F 61 14 114/73 97 06/08/18 08:00 06/08/18 08:00 06/08/18 08:00 06/08/18 08:00 06/08/18 08:00 Oxygen Flow Rate (L/min) 4 Oxygen Delivery Method Room Air Weight: 174 lb 9.698 oz Body Mass Index (BMI) 24.6 Intake and Output for Last 24 Hours 06/06/18 06/07/18 06/08/18 23:59 23:59 23:59 Intake Total 1296 / 1296 200 / 200 Output Total 1300 / 1300 0 / 0 Balance -4 / -4 200 / 200 General: Alert, Oriented x3, Cooperative, No apparent distress HEENT: Atraumatic, PERRLA, EOMI, Normocephalic Oral: Moist Mucosa Neck: Supple, No JVD, Negative Carotid Bruits Lungs: Clear to auscultation, Normal air movement, No rhonchi, No wheeze, No rales Cardiovascular: Regular rate, Regular Rhythm, Normal S1, Normal S2, No murmurs Abdomen: Bowel Sounds Present, Soft, Non Tender, Non-Distended, No Hepato-splenomegaly Extremities: No clubbing, No cyanosis, No edema, Capillary Refill Less than 3 Seconds, - - right groin dressing is clean. Femstop in place Skin: No rashes, No breakdown Musculoskeletal: No Tenderness to Palpation of Joints or Extremities Lymphatic: No Cervical, Supraclavicular, or Inguinal Adenopathy Neurological: Cranial nerves II-XII grossly intact, Neuro grossly intact, Motor Exam 5/5 strength throughout Psych/Mental Status: Normal Affect, Appropriate, Alert and oriented to time, place, person, mood and affect Laboratory Results 06/07/18 11:39: WBC 8.0, RBC 4.98, Hgb 15.2, Hct 43.0, MCV 86.3, MCH 30.5, MCHC 35.3, RDW 12.0, RDW Differential 37.1, Plt Count 338, MPV 9.2, Immature Gran % (Auto) 0.100, Neut % (Auto) 63.5, Lymph % (Auto) 24.0, [place] % (Auto) 10.4 H, Eos % (Auto) 1.6, Baso % (Auto) 0.4, Absolute Neuts (auto) 5.0, Absolute Lymphs (auto) 1.91, Total Counted Not Reportable 06/07/18 11:39: PT 13.2, INR 1.0, APTT 23.6 L 06/07/18 11:39: Sodium 136, Potassium 3.3 L, Chloride 102, Carbon Dioxide 26.0, Anion Gap 8, BUN 13, Creatinine 1.29, Estim Creat Clear Calc 62.09, Est GFR (MDRD) Af Amer 73, Est GFR (MDRD) Non-Af 60, BUN/Creatinine Ratio 10.1, Glucose 214 H, Calcium 8.3 L, Troponin I 0.252 H 06/07/18 11:42: POC Glucose 186 H 06/07/18 12:11: Activated Clotting Time 175 H 06/07/18 13:09: Activated Clotting Time 224 H 06/07/18 13:16: Activated Clotting Time 213 H 06/07/18 15:39: Activated Clotting Time 153 H 06/08/18 05:10: WBC 10.5, RBC 4.85, Hgb 14.8, Hct 42.0, MCV 86.6, MCH 30.5, MCHC 35.2, RDW 12.4, RDW Differential 38.3, Plt Count 273, MPV 9.3 06/08/18 05:10: Sodium 139, Potassium 4.3, Chloride 107, Carbon Dioxide 24.0, Anion Gap 8, BUN 9, Creatinine 0.96, Estim Creat Clear Calc 83.43, Est GFR (MDRD) Af Amer 103, Est GFR (MDRD) Non-Af 85, BUN/Creatinine Ratio 9.4 L, Glucose 109 H, Calcium 8.2 L, Triglycerides 127, Cholesterol 155, LDL Cholesterol 91, VLDL Cholesterol 25, HDL Cholesterol 39 L, TSH 1.07 06/08/18 05:10: Hemoglobin A1c 5.5 Current Medications Acetaminophen (Tylenol) 650 mg PO Q6H PRN PRN PRN Reason: Mild Pain (0-2/10) Last Admin: 06/07/18 22:23 Dose: 650 mg Aspirin (Aspirin, Baby) 81 mg PO DAILY@0800 [facility] Atorvastatin Calcium (Lipitor) 80 mg PO QHS [facility] Last Admin: 06/07/18 22:19 Dose: 80 mg Atropine Sulfate () 0.5 mg IV UD PRN PRN Reason: HR <50 bpm Diazepam (Valium) 5 mg PO Q6H PRN PRN PRN Reason: BACK SPASMS/ANXIETY Heparin Sodium (Beef Lung) (Heparin 500 Unit/5 Ml (100/Ml)) 500 unit IV UD PRN PRN Reason: HEPARIN FLUSH Sodium Chloride () 250 mls @ 15 mls/hr IV .[id number] PRN PRN Reason: SALINE FLUSH Labetalol HCl (Trandate) 5 mg IV X1 PRN PRN Reason: SBP > 160 when pulling sheath Losartan Potassium (Cozaar) 25 mg PO DAILY [facility] Metoclopramide HCl (Reglan) 5 mg IV Q6H PRN PRN Reason: NAUSEA/VOMITING Metoprolol Tartrate (Lopressor (Beta Michael)) 12.5 mg PO BID [facility] Last Admin: 06/07/18 22:19 Dose: 12.5 mg Morphine Sulfate () 2 mg IV Q4H PRN PRN PRN Reason: Mild back pain (0-2/10) Nitroglycerin (Nitrostat) 0.4 mg SUBLINGUAL Q5M PRN PRN Reason: CARDIAC/CHEST PAIN Sodium Chloride () 500 ml IV BOLUS PRN PRN Reason: VASO-VAGAL PROTOCOL Sodium Chloride () 5 - 15 ml IV UD PRN PRN Reason: SALINE FLUSH Ticagrelor (Brilinta) 90 mg PO BID [facility] Last Admin: 06/07/18 22:19 Dose: 90 mg Medical Necessity - Tobacco Use Smoking Status: Never smoker Assessment/Plan All Active Problems (Last Updated 06/07/18 @ 18:18 by Christina Pierson) Acute coronary syndrome (Acute) 1. NSTEMI s/p cardiac cath Stents placed in the mid LAD, proximal LAD and second diagonal artery. Has no complaints this morning. On aspirin, Brilinta and statin as well as beta-michael. 2D echo pending this morning. Lipid panel showed HDL of 39 with LDL of 91 and total cholesterol of 155 as well as triglycerides of 127. Cardiology on board. Recommend to keep 1 more day on account of difficulty securing hemostasis yesterday as well as some PVCs on telemetry and some mild chest pain last evening. started on losartan o.a of elevated LV end diastolic pressure 2. Aortic stenosis: newly diagnosed per cardiac cath and 3/5 ejection murmur. 2D echo pending. cardiology on board 3. Hypokalemia: resolved. K is 4.3 today, after replacement 4. Hyperglycemia: blood sugar was 214 on admission; fasting sugar is 109 today. A1C is 5.5, therefore not diabetic. Will monitor\ 5. Prostate cancer s/p radiotherapy: stable. To follow up with oncologist and urologist at [facility] DVT prophylaxis: SCDs for now. Code Visit Inpatient E&M: 44034 Subs Hosp L2
--- NOTE | 2018-06-08 09:29 | PN_ITS ---
Patient Problems: Active and Suspected Problems (Last Updated 06/07/18 @ 18:18 by Christina Pierson) Acute coronary syndrome (Acute) Subjective: Patient seen and examined. He was admitted with a complaint of chest pain and was found to have non-STEMI. He went straight to cardiac cath which showed 85% stenosis in the proximal LAD and 75% stenosis in the mid LAD as well as 75% stenosis in the ostium of the diagonal artery and 50% stenosis in the mid circumflex artery. He had drug eluting stent placement in the proximal and mid LAD as well as second diagonal artery. Patient has no complaints this morning. He did have some mild chest pain overnight and also there was difficulty securing hemostasis in the right groin area. This required application of a firm stop for at least 6 hours. There is no bleeding now. He has no complaints and feels well. Review of systems otherwise negative. Labs and vitals reviewed. Vitals/I&O's: Vital Signs Temp Pulse Resp BP Pulse Ox 97.9 F 61 14 114/73 97 06/08/18 08:00 06/08/18 08:00 06/08/18 08:00 06/08/18 08:00 06/08/18 08:00 Oxygen Flow Rate (L/min) 4 Oxygen Delivery Method Room Air Weight: 174 lb 9.698 oz Body Mass Index (BMI) 24.6 Intake and Output for Last 24 Hours 06/06/18 06/07/18 06/08/18 23:59 23:59 23:59 Intake Total 1296 / 1296 200 / 200 Output Total 1300 / 1300 0 / 0 Balance -4 / -4 200 / 200 General: Alert, Oriented x3, Cooperative, No apparent distress HEENT: Atraumatic, PERRLA, EOMI, Normocephalic Oral: Moist Mucosa Neck: Supple, No JVD, Negative Carotid Bruits Lungs: Clear to auscultation, Normal air movement, No rhonchi, No wheeze, No rales Cardiovascular: Regular rate, Regular Rhythm, Normal S1, Normal S2, No murmurs Abdomen: Bowel Sounds Present, Soft, Non Tender, Non-Distended, No Hepato- splenomegaly Extremities: No clubbing, No cyanosis, No edema, Capillary Refill Less than 3 Seconds, - - right groin dressing is clean. Femstop in place Skin: No rashes, No breakdown Musculoskeletal: No Tenderness to Palpation of Joints or Extremities Lymphatic: No Cervical, Supraclavicular, or Inguinal Adenopathy Neurological: Cranial nerves II-XII grossly intact, Neuro grossly intact, Motor Exam 5/5 strength throughout Psych/Mental Status: Normal Affect, Appropriate, Alert and oriented to time, place, person, mood and affect Laboratory Results 06/07/18 11:39: WBC 8.0, RBC 4.98, Hgb 15.2, Hct 43.0, MCV 86.3, MCH 30.5, MCHC 35.3, RDW 12.0, RDW Differential 37.1, Plt Count 338, MPV 9.2, Immature Gran % (Auto) 0.100, Neut % (Auto) 63.5, Lymph % (Auto) 24.0, [place] % (Auto) 10.4 H, Eos % (Auto) 1.6, Baso % (Auto) 0.4, Absolute Neuts (auto) 5.0, Absolute Lymphs (auto) 1.91, Total Counted Not Reportable 06/07/18 11:39: PT 13.2, INR 1.0, APTT 23.6 L 06/07/18 11:39: Sodium 136, Potassium 3.3 L, Chloride 102, Carbon Dioxide 26.0, Anion Gap 8, BUN 13, Creatinine 1.29, Estim Creat Clear Calc 62.09, Est GFR (MDRD) Af Amer 73, Est GFR (MDRD) Non-Af 60, BUN/Creatinine Ratio 10.1, Glucose 214 H, Calcium 8.3 L, Troponin I 0.252 H 06/07/18 11:42: POC Glucose 186 H 06/07/18 12:11: Activated Clotting Time 175 H 06/07/18 13:09: Activated Clotting Time 224 H 06/07/18 13:16: Activated Clotting Time 213 H 06/07/18 15:39: Activated Clotting Time 153 H 06/08/18 05:10: WBC 10.5, RBC 4.85, Hgb 14.8, Hct 42.0, MCV 86.6, MCH 30.5, MCHC 35.2, RDW 12.4, RDW Differential 38.3, Plt Count 273, MPV 9.3 06/08/18 05:10: Sodium 139, Potassium 4.3, Chloride 107, Carbon Dioxide 24.0, Anion Gap 8, BUN 9, Creatinine 0.96, Estim Creat Clear Calc 83.43, Est GFR (MDRD) Af Amer 103, Est GFR (MDRD) Non-Af 85, BUN/Creatinine Ratio 9.4 L, Glucose 109 H, Calcium 8.2 L, Triglycerides 127, Cholesterol 155, LDL Cholesterol 91, VLDL Cholesterol 25, HDL Cholesterol 39 L, TSH 1.07 06/08/18 05:10: Hemoglobin A1c 5.5 Current Medications Acetaminophen (Tylenol) 650 mg PO Q6H PRN PRN PRN Reason: Mild Pain (0-2/10) Last Admin: 06/07/18 22:23 Dose: 650 mg Aspirin (Aspirin, Baby) 81 mg PO DAILY@0800 [facility] Atorvastatin Calcium (Lipitor) 80 mg PO QHS [facility] Last Admin: 06/07/18 22:19 Dose: 80 mg Atropine Sulfate () 0.5 mg IV UD PRN PRN Reason: HR <50 bpm Diazepam (Valium) 5 mg PO Q6H PRN PRN PRN Reason: BACK SPASMS/ANXIETY Heparin Sodium (Beef Lung) (Heparin 500 Unit/5 Ml (100/Ml)) 500 unit IV UD PRN PRN Reason: HEPARIN FLUSH Sodium Chloride () 250 mls @ 15 mls/hr IV .[id number] PRN PRN Reason: SALINE FLUSH Labetalol HCl (Trandate) 5 mg IV X1 PRN PRN Reason: SBP > 160 when pulling sheath Losartan Potassium (Cozaar) 25 mg PO DAILY [facility] Metoclopramide HCl (Reglan) 5 mg IV Q6H PRN PRN Reason: NAUSEA/VOMITING Metoprolol Tartrate (Lopressor (Beta Michael)) 12.5 mg PO BID [facility] Last Admin: 06/07/18 22:19 Dose: 12.5 mg Morphine Sulfate () 2 mg IV Q4H PRN PRN PRN Reason: Mild back pain (0-2/10) Nitroglycerin (Nitrostat) 0.4 mg SUBLINGUAL Q5M PRN PRN Reason: CARDIAC/CHEST PAIN Sodium Chloride () 500 ml IV BOLUS PRN PRN Reason: VASO-VAGAL PROTOCOL Sodium Chloride () 5 - 15 ml IV UD PRN PRN Reason: SALINE FLUSH Ticagrelor (Brilinta) 90 mg PO BID [facility] Last Admin: 06/07/18 22:19 Dose: 90 mg Medical Necessity - Tobacco Use Smoking Status: Never smoker Assessment/Plan All Active Problems (Last Updated 06/07/18 @ 18:18 by Christina Pierson) Acute coronary syndrome (Acute) 1. NSTEMI s/p cardiac cath * Stents placed in the mid LAD, proximal LAD and second diagonal artery. * Has no complaints this morning. * On aspirin, Brilinta and statin as well as beta-michael. 2D echo pending this morning. * Lipid panel showed HDL of 39 with LDL of 91 and total cholesterol of 155 as well as triglycerides of 127. * Cardiology on board. Recommend to keep 1 more day on account of difficulty securing hemostasis yesterday as well as some PVCs on telemetry and some mild chest pain last evening. * started on losartan o.a of elevated LV end diastolic pressure * 2. Aortic stenosis: * newly diagnosed per cardiac cath and 3/5 ejection murmur. 2D echo pending. * cardiology on board * 3. Hypokalemia: resolved. K is 4.3 today, after replacement 4. Hyperglycemia: blood sugar was 214 on admission; fasting sugar is 109 today. A1C is 5.5, therefore not diabetic. Will monitor\ 5. Prostate cancer s/p radiotherapy: stable. To follow up with oncologist and urologist at [facility] DVT prophylaxis: SCDs for now. Code Visit Inpatient E&M: [id number] Subs Hosp L2
--- NOTE | 2018-06-08 10:00 | EKG12_ITS ---
Test Reason : AM EKG Blood Pressure : / mmHG Vent. Rate : 065 BPM Atrial Rate : 065 BPM P-R Int : 162 ms QRS Dur : 098 ms QT Int : 478 ms P-R-T Axes : 055 071 122 degrees QTc Int : 497 ms Normal sinus rhythm Septal infarct , age undetermined ST & Marked T wave abnormality, consider anterolateral ischemia Abnormal ECG When compared with ECG of 07-JUN-2018 23:12, MANUAL COMPARISON REQUIRED, DATA IS UNCONFIRMED Confirmed by MANUEL LUX, MARQUIS ([id number]), newspaper photo editor KIM PIERSON ([id number]) on 06/13/2018 5:22:42 PM Referred By: Kuldip Wooten Confirmed By:MARQUIS JACKSON MD
[2018-06-08] MEDS: Metoprolol Tartrate 25 MG Tablet 12.5 MG PO ×2 (10:35→21:17)
[2018-06-08] MEDS: TICAGRELOR 90 MG TABLET PO ×2 (10:36→21:17)
[2018-06-08] MEDS: Losartan Potassium 25 MG Tablet PO (10:36)
[2018-06-08] MEDS: Aspirin 81 MG TAB.CHEW PO (10:36)
--- NOTE | 2018-06-08 11:15 | CASEMGMT ---
RN DOMINIC DATA SECURITY ADMINISTRATOR CM to room to meet with patient for initial transition planning/care coordination assessment. MAURICIO ALFARO introduced self and role at [facility]. Pt voices understanding and consents to assessment at this time. Pt resting in bed in no distress at this time. Pt is A/O at this time and answers all questions appropriately. Care providers, pharmacy, and demographics verified/updated at this time. PCP: Ronnie Specialists: Oncologist @ [facility], Dr Cain Kinsey Preferred Pharmacy: [facility] Insurance: [employer] [facility], [place] Prescription Benefit: Yes Living Will/HPOA: States does not have LW or HCPOA . Interested in more information but states does not want to talk with SW at this time to complete paperwork. Provided information on advanced directives and given Social Service rac card with number to call if chooses in the future to utilize [facility] social work for advanced directive completion. Educated patient that, if patient so chooses, can come back to [facility] and meet with a SW as an outpatient to complete health care advanced directives. Patient expresses understanding. LNOK: Living Arrangements: Lives with in 2-story home. Independent. Works full-time. Transportation: Pt states drives self and states no transportation concerns at this time. DME: Denies using any DME and denies needs. HHC/SNF: No history of either and denies needs. No needs identified. Pt wishes to return home and states has no concerns with going home at time of discharge. CM to follow for any further discharge planning/needs. Pt voices no further concerns/needs at this time. Advised pt to ask for CM if any further questions/concerns/needs arise. Voices understanding. PLAN: Home. Plan is to discharge home on Brilinta. Will need Brilinta savings card sent to [facility] once order is e-scribed. Conner STARK RN, CM
[2018-06-08] MEDS: Atorvastatin Calcium 80 MG Tablet PO (21:17)
[2018-06-09 03:01] VITALS: PULSE 60
[2018-06-09 03:15] VITALS: BP 105/70; PULSE 53; RESP 16; TEMP 36.8; O2SAT 97
[2018-06-09 06:17] LABS: Absolute Lymphocyte Count 1.11 X10^3/ul (0.83-4.51); Basophil# 0.01 X10^3/uL; Basophil% 0.1 % (0-1); Eosinophil# 0.05 X10^3/uL; Eosinophils% 0.6 % (0-5); Hemoglobin 15.1 g/dl (13.0-16.5); Lymphocyte # 1.11 X10^3/ul (4.0); Lymphocyte % 13.4 % (19-41); Mean Corp Hgb Conc 34.3 g/gl (32-36); Mean Corpuscular Hgb 30.1 pg (27.0-32.0); Mean Corpuscular Volume 87.6 fL (80-94); Mean Platelet Vol. 9.3 fl (6.2-12.0); Monocyte# 1.11 X10^3/uL; Monocyte% 13.4 % (0-10); Neutrophil # 6.02 X10^3/uL (2.7-7.7); Neutrophil % 72.5 % (47-70); Platelet Count 253 K/mm3 (150-450); RBC Distribution Width CV 12.5 % (11.6-14.6); RBC Distribution Width SD 38.9 fl (35.1-43.9); Red Blood Count 5.02 M/mm3 (4.6-6.2); White Blood Count 8.3 K/mm3 (4.4-11.0)
[2018-06-09 06:23] LABS: POSITIVE COUNT NO; POSITIVE DIFFERENTIAL NO; POSITIVE MORPHOLOGY NO
[2018-06-09 06:48] LABS: Anion Gap 8 (5-15); BUN 11 mg/dL (7-18); BUN/Creat Ratio 10.5 RATIO (10-20); Calcium,Total 8.6 mg/dL (8.5-10.1); Chloride 105 mmol/L (98-107); Creatinine, Serum 1.05 mg/dL (0.70-1.30); EST Glomerular Filtration Rate 76 mL/min (>60); Est Glom Filt Rate - Afr Amer 92 mL/min (>60); Estimated Creatinine Clearance 76.28 ml/min; Glucose 99 mg/dL (74-106); Sodium Level 140 mmol/L (136-145)
[2018-06-09 07:29] VITALS: PULSE 58
[2018-06-09 07:30] VITALS: O2SAT 95
[2018-06-09 09:11] VITALS: PULSE 67
[2018-06-09] MEDS: Aspirin 81 MG TAB.CHEW PO (09:11)
[2018-06-09] MEDS: TICAGRELOR 90 MG TABLET PO (09:11)
[2018-06-09] MEDS: Losartan Potassium 25 MG Tablet PO (09:11)
[2018-06-09] MEDS: Metoprolol Tartrate 25 MG Tablet 12.5 MG PO (09:11)
[2018-06-09 09:15] VITALS: BP 134/78; PULSE 62; RESP 16; TEMP 36.6; O2SAT 97
--- NOTE | 2018-06-09 10:00 | EKG12_ITS ---
Test Reason : AM EKG Blood Pressure : / mmHG Vent. Rate : 060 BPM Atrial Rate : 060 BPM P-R Int : 158 ms QRS Dur : 098 ms QT Int : 502 ms P-R-T Axes : 060 067 133 degrees QTc Int : 502 ms Normal sinus rhythm Anteroseptal infarct , age undetermined ST & Marked T wave abnormality, consider lateral ischemia or PIPEFITTER HELPER event Prolonged QT Abnormal ECG Confirmed by MANUEL LUX, MARQUIS ([id number]), market editor KIM PIERSON ([id number]) on 06/17/2018 8:57:46 AM Referred By: Kuldip Wooten Confirmed By:MARQUIS JACKSON MD
--- NOTE | 2018-06-09 10:25 | PCM.DC ---
- Discharge Diagnoses Current Active Problems: Current Active and Chronic Problems (Last Updated 06/08/18 @ 13:32 by Christina Pierson) Bicuspid aortic valve (Chronic) Ischemic cardiomyopathy (Chronic) The estimated ejection fraction is 45-50 %. Stage 1 diastolic dysfunction. Mid-anteroseptal : Severely Hypokinetic. Anterior [place] : Akinetic. There are regional wall motion abnormalities as specified. Per echo done 06/08/2018 @ [facility] Aortic stenosis (Chronic) Bicuspid aortic valve. Severe diffuse aortic valve thickening. Severe focal aortic valve calcification. Severe restriction of the aortic valve. Severe aortic stenosis. Peak aortic valve gradient 85 mmHg. Mean aortic valve gradient 53 mmHg. Calculated aortic valve area (continuity equation) is 0.82 cm2. Per echo 06/08/2018 [facility] @ [facility] Atherosclerotic heart disease of [place] coronary artery without angina pectoris (Chronic) Successful PTCA/HAFSA mid LAD with a 2.5 x 20 Promus Synergy, post dilated with a 3.0 x 12 NC Balloon at 9 lucero; 75%-->0%, no dissection. Successful PTCA/HAFSA proximal LAD with a 3.0 x 16 Promus Synergy stent, post dilated with a 3.0 x 12 NC balloon; 85%-->0%, no dissection. Successful PCI with PTCA to the ostial DIAG#2 with a 2.0 x 12 ballloon after mid LAD stent placed; 85%-->40%, no dissection. No evidence of proximal LAD stent encroachment on ostial LCX with passage of 2.0 balloon. 06/07/2018 Stented coronary artery (Chronic 06/07/18) Successful PTCA/HAFSA mid LAD with a 2.5 x 20 Promus Synergy, post dilated with a 3.0 x 12 NC Balloon at 9 lucero; 75%-->0%, no dissection. Successful PTCA/HAFSA proximal LAD with a 3.0 x 16 Promus Synergy stent, post dilated with a 3.0 x 12 NC balloon; 85%-->0%, no dissection. Successful PCI with PTCA to the ostial DIAG#2 with a 2.0 x 12 ballloon after mid LAD stent placed; 85%-->40%, no dissection. No evidence of proximal LAD stent encroachment on ostial LCX with passage of 2.0 balloon. 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 Weight Bearing Status: Weight bearing as tolerated Call your doctor if you observe: Shortness of breath, Chest pain Instructions: Discharge Instructions for Aortic Valve Stenosis, Symptoms of a Heart Attack, Discharge Instructions for Heart Attack Allergies/Adverse Reactions: Allergies Penicillins Allergy (Verified 06/07/18 11:36) Hives Medications to take at Discharge Aspirin [Aspirin, Baby] 81 mg PO DAILY@0800 06/07/18 Atorvastatin Calcium [Lipitor] 80 mg PO QHS #30 tablet 06/09/18 Losartan Potassium [Cozaar] 25 mg PO DAILY #30 tablet 06/09/18 Metoprolol Tartrate [Lopressor (beta pierre)] 12.5 mg PO BID #30 tablet 06/09/18 Nitroglycerin [Nitrostat] 0.4 mg SUBLINGUAL Q5M PRN #30 tablet 06/09/18 Ticagrelor [Brilinta] 90 mg PO BID #60 tablet 06/09/18 The following prescriptions were given: Atorvastatin Calcium [Lipitor] 80 mg PO QHS #30 tablet Losartan Potassium [Cozaar] 25 mg PO DAILY #30 tablet Nitroglycerin [Nitrostat] 0.4 mg SUBLINGUAL Q5M PRN #30 tablet PRN Reason: Cardiac/Chest Pain Metoprolol Tartrate [Lopressor (beta pierre)] 12.5 mg PO BID #30 tablet Ticagrelor [Brilinta] 90 mg PO BID #60 tablet Orders to be completed after discharge: Phase II, Outpatient Cardiac Rehab Location: None Selected Primary Care Physician: Care Physician,No Primary [NON-STAFF] - Please follow up with your Primary Care Physician in: PCP in [facility] in one week Test Results: Test results from this visit will be discussed in further detail at your follow-up appointment, if applicable. Please Follow Up With: Henrry Germain MD When: one week Proposed Discharge Date: 06/09/18
--- NOTE | 2018-06-09 10:29 | DCINST_ITS ---
- Discharge Diagnoses Current Active Problems: Current Active and Chronic Problems (Last Updated 06/08/18 @ 13:32 by Christina Pierson) Bicuspid aortic valve (Chronic) Ischemic cardiomyopathy (Chronic) The estimated ejection fraction is 45-50 %. Stage 1 diastolic dysfunction. Mid-anteroseptal : Severely Hypokinetic. Anterior [place] : Akinetic. There are regional wall motion abnormalities as specified. Per echo done 06/08/2018 @ [facility] Aortic stenosis (Chronic) Bicuspid aortic valve. Severe diffuse aortic valve thickening. Severe focal aortic valve calcification. Severe restriction of the aortic valve. Severe aortic stenosis. Peak aortic valve gradient 85 mmHg. Mean aortic valve gradient 53 mmHg. Calculated aortic valve area (continuity equation) is 0.82 cm2. Per echo 06/08/2018 [facility] Atherosclerotic heart disease of [place] coronary artery without angina pectoris (Chronic) Successful PTCA/HAFSA mid LAD with a 2.5 x 20 Promus Synergy, post dilated with a 3.0 x 12 NC Balloon at 9 lucero; 75%-->0%, no dissection. Successful PTCA/HAFSA proximal LAD with a 3.0 x 16 Promus Synergy stent, post dilated with a 3.0 x 12 NC balloon; 85%-->0%, no dissection. Successful PCI with PTCA to the ostial DIAG#2 with a 2.0 x 12 ballloon after mid LAD stent placed; 85%-->40%, no dissection. No evidence of proximal LAD stent encroachment on ostial LCX with passage of 2.0 balloon. 06/07/2018 Stented coronary artery (Chronic 06/07/18) Successful PTCA/HAFSA mid LAD with a 2.5 x 20 Promus Synergy, post dilated with a 3.0 x 12 NC Balloon at 9 lucero; 75%-->0%, no dissection. Successful PTCA/HAFSA proximal LAD with a 3.0 x 16 Promus Synergy stent, post dilated with a 3.0 x 12 NC balloon; 85%-->0%, no dissection. Successful PCI with PTCA to the ostial DIAG#2 with a 2.0 x 12 ballloon after mid LAD stent placed; 85%-->40%, no dissection. No evidence of proximal LAD stent encroachment on ostial LCX with passage of 2.0 balloon. 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 Weight Bearing Status: Weight bearing as tolerated Call your doctor if you observe: Shortness of breath, Chest pain Instructions: Discharge Instructions for Aortic Valve Stenosis, Symptoms of a Heart Attack, Discharge Instructions for Heart Attack Allergies/Adverse Reactions: Allergies Penicillins Allergy (Verified 06/07/18 11:36) Hives Medications to take at Discharge Aspirin [Aspirin, Baby] 81 mg PO DAILY@0800 06/07/18 Atorvastatin Calcium [Lipitor] 80 mg PO QHS #30 tablet 06/09/18 Losartan Potassium [Cozaar] 25 mg PO DAILY #30 tablet 06/09/18 Metoprolol Tartrate [Lopressor (beta pierre)] 12.5 mg PO BID #30 tablet 06/09 Nitroglycerin [Nitrostat] 0.4 mg SUBLINGUAL Q5M PRN #30 tablet 06/09/18 Ticagrelor [Brilinta] 90 mg PO BID #60 tablet 06/09/18 The following prescriptions were given: Atorvastatin Calcium [Lipitor] 80 mg PO QHS #30 tablet Losartan Potassium [Cozaar] 25 mg PO DAILY #30 tablet Nitroglycerin [Nitrostat] 0.4 mg SUBLINGUAL Q5M PRN #30 tablet PRN Reason: Cardiac/Chest Pain Metoprolol Tartrate [Lopressor (beta pierre)] 12.5 mg PO BID #30 tablet Ticagrelor [Brilinta] 90 mg PO BID #60 tablet Orders to be completed after discharge: Phase II, Outpatient Cardiac Rehab Location: None Selected Primary Care Physician: Care Physician,No Primary [NON-STAFF] - Please follow up with your Primary Care Physician in: PCP in [facility] in one week Test Results: Test results from this visit will be discussed in further detail at your follow- up appointment, if applicable. Please Follow Up With: Henrry Germain MD When: one week Proposed Discharge Date: 06/09/18
--- NOTE | 2018-06-09 10:30 | PCM.DC.SUM ---
Discharge Date and Diagnosis Date of Admission: 06/07/18 Date of Discharge: 06/09/18 - Primary Discharge Diagnosis Active and Suspected Problems (Last Updated 06/08/18 @ 13:32 by Christina Pierson) Acute coronary syndrome (Acute) aortic stenosis - Secondary Discharge Diagnosis Chronic Problems (Last Updated 06/08/18 @ 13:32 by Christina Pierson) Bicuspid aortic valve (Chronic) Ischemic cardiomyopathy (Chronic) The estimated ejection fraction is 45-50 %. Stage 1 diastolic dysfunction. Mid-anteroseptal : Severely Hypokinetic. Anterior [place] : Akinetic. There are regional wall motion abnormalities as specified. Per echo done 06/08/2018 @ [facility] Aortic stenosis (Chronic) Bicuspid aortic valve. Severe diffuse aortic valve thickening. Severe focal aortic valve calcification. Severe restriction of the aortic valve. Severe aortic stenosis. Peak aortic valve gradient 85 mmHg. Mean aortic valve gradient 53 mmHg. Calculated aortic valve area (continuity equation) is 0.82 cm2. Per echo 06/08/2018 DJN @ [facility] Atherosclerotic heart disease of [place] coronary artery without angina pectoris (Chronic) Successful PTCA/HAFSA mid LAD with a 2.5 x 20 Promus Synergy, post dilated with a 3.0 x 12 NC Balloon at 9 lucero; 75%-->0%, no dissection. Successful PTCA/HAFSA proximal LAD with a 3.0 x 16 Promus Synergy stent, post dilated with a 3.0 x 12 NC balloon; 85%-->0%, no dissection. Successful PCI with PTCA to the ostial DIAG#2 with a 2.0 x 12 ballloon after mid LAD stent placed; 85%-->40%, no dissection. No evidence of proximal LAD stent encroachment on ostial LCX with passage of 2.0 balloon. 06/07/2018 Stented coronary artery (Chronic 06/07/18) Successful PTCA/HAFSA mid LAD with a 2.5 x 20 Promus Synergy, post dilated with a 3.0 x 12 NC Balloon at 9 lucero; 75%-->0%, no dissection. Successful PTCA/HAFSA proximal LAD with a 3.0 x 16 Promus Synergy stent, post dilated with a 3.0 x 12 NC balloon; 85%-->0%, no dissection. Successful PCI with PTCA to the ostial DIAG#2 with a 2.0 x 12 ballloon after mid LAD stent placed; 85%-->40%, no dissection. No evidence of proximal LAD stent encroachment on ostial LCX with passage of 2.0 balloon. per DJN @ [facility] 06/07/2018 Prostate cancer (Chronic) Hospital Course and Treatment Imaging Results: Diagnostic Data Chest X-Ray 06/07/18 11:50 IMPRESSION: Normal x-ray examination of the chest. Electronically Signed: Isaias Granger DO at 12:24 EDT Tel , Service support , cardiology- Henrry Germain Operations: None Procedures: 2-D Echocardiogram, Cardiac catheterization Summary of Care Provided: The patient is a 62 year old M with past medical history of prostate cancer in remission hypertension. He was admitted through the ED on 06/07/2018 with a complaint of sudden onset chest pain was at work. Patient was out delivering packages and suddenly started having chest pain with assisted nausea, sweating, dizziness and mild shortness of breath. He says he has been having chest pain on and off for the last few weeks and had an appointment for a scheduled stress test in 2-3 weeks. Admission in the ED, troponin was 0.256 [address] EKG done showed ST elevation in aVR with ST depression in V4 to V6 and inferior leads. Patient was managed for non-STEMI and was sent immediately to the License Clerk for emergent cardiac cath. Cath showed 85% stenosis in the proximal LAD and 75% stenosis in the mid LAD as well as 75% stenosis in the ostium of the second diagonal artery with 50% stenosis in the mid circumflex artery. Left main and right coronary arteries were normal. He had drug-eluting stents placed in the mid LAD and proximal LAD as well as second diagonal. He was subsequently admitted to the ICU for closer monitoring. He was started on aspirin and Brilinta as well as high intensity statin. There was some mild difficulty in securing hemostasis in the right groin area and he required placement of a FemoStop to help stop bleeding. 2D echocardiogram done showed mildly dilated left ventricle with estimated EF of 45-50% in stage I diastolic dysfunction. He had severely hypokinetic jordan. He had a bicuspid aortic valve with severe diffuse aortic valve thickening and severe aortic stenosis with peak aortic valve gradient of 85mmhg. Patient remained stable and he was discharged home on 06/09/18. He was given scripts for p.o. aspirin, atorvastatin, losartan, metoprolol, carvedilol and nitroglycerin as needed. He is to follow-up with his primary care doctor and inspection manager. Of note, patient told that he should stay away from work for the next 2 weeks. Patient counseled that he would benefit from aortic valve replacement in the transcutaneously or per open correction. Per cardiology, to refer him to Dr. James Koch of [facility] for aortic valve replacement and he will also need a ANALISA in the next few weeks to evaluate for possible bicuspid aorta.. Patient seen and examined prior to discharge. He had no complaints and felt well. Review of systems otherwise negative. His right groin sheath was removed yesterday and dressing was clean. Review of systems otherwise negative. Labs and vitals reviewed. Home medication reviewed and reconciled o/e: Vital Signs Height 5 ft 10 in Weight: 174 lb 9.698 oz Weight in Pounds 174.6 lbs Pulse Ox 97 Temperature 97.9 F Pulse Rate 62 Respiratory Rate 16 Blood Pressure [BP] 98/75 Blood Pressure 134/78 Blood Pressure Position [BP] Semi-Fowlers Blood Pressure Position Standing [] General: Alert, Oriented x3, Cooperative, No apparent distress HEENT: Atraumatic, PERRLA, EOMI, Normocephalic Oral: Moist Mucosa Neck: Supple, No JVD, Negative Carotid Bruits Lungs: Clear to auscultation, Normal air movement, No rhonchi, No wheeze, No rales Cardiovascular: Regular rate, Regular Rhythm, Normal S1, Normal S2, No murmurs Abdomen: Bowel Sounds Present, Soft, Non Tender, Non-Distended, No Hepato-splenomegaly Extremities: No clubbing, No cyanosis, No edema, Capillary Refill Less than 3 Seconds, - - right groin dressing is clean. Skin: No rashes, No breakdown Musculoskeletal: No Tenderness to Palpation of Joints or Extremities Lymphatic: No Cervical, Supraclavicular, or Inguinal Adenopathy Neurological: Cranial nerves II-XII grossly intact, Neuro grossly intact, Motor Exam 5/5 strength throughout Psych/Mental Status: Normal Affect, Appropriate, Alert and oriented to time, place, person, mood and affect Plan is to discharge home today as described above. - Physical Exam Vital Signs Temp Pulse Resp BP Pulse Ox 97.9 F 62 16 134/78 H 97 06/09/18 09:15 06/09/18 09:15 06/09/18 09:15 06/09/18 09:15 06/09/18 09:15 Oxygen Flow Rate (L/min) 4 Oxygen Delivery Method Room Air Weight: 174 lb 9.698 oz Body Mass Index (BMI) 24.6 Intake and Output for Last 24 Hours 06/07/18 06/08/18 06/09/18 23:59 23:59 23:59 Intake Total 1296 / 1296 1160 / 1160 50 / 50 Output Total 1300 / 1300 600 / 600 Balance -4 / -4 560 / 560 50 / 50 Laboratory Tests Past 24 Hrs 06/09/18 06/09/18 05:55 05:55 WBC 8.3 RBC 5.02 Hgb 15.1 Hct 44.0 MCV 87.6 MCH 30.1 MCHC 34.3 RDW 12.5 RDW Differential 38.9 Plt Count 253 MPV 9.3 Immature Gran % (Auto) 0.000 Neut % (Auto) 72.5 H Lymph % (Auto) 13.4 L Levy % (Auto) 13.4 H Eos % (Auto) 0.6 Baso % (Auto) 0.1 Absolute Neuts (auto) 6.0 Absolute Lymphs (auto) 1.11 Total Counted Not Reportable Sodium 140 Potassium 4.0 Chloride 105 Carbon Dioxide 27.0 Anion Gap 8 BUN 11 Creatinine 1.05 Estim Creat Clear Calc 76.28 Est GFR (MDRD) Af Amer 92 Est GFR (MDRD) Non-Af 76 BUN/Creatinine Ratio 10.5 Glucose 99 Calcium 8.6 Discharge Diet: Low fat/ Low Cholesterol Discharge Activity: - - 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 Weight Bearing Status: Weight bearing as tolerated Call your doctor if you observe: Shortness of breath, Chest pain Home Medications: Medications to take at Discharge Aspirin [Aspirin, Baby] 81 mg PO DAILY@0800 06/07/18 Atorvastatin Calcium [Lipitor] 80 mg PO QHS #30 tab 06/09/18 Losartan Potassium [Cozaar] 25 mg PO DAILY #30 tab 06/09/18 Metoprolol Tartrate [Lopressor (beta michael)] 12.5 mg PO BID #30 tab 06/09/18 Nitroglycerin [Nitrostat] 0.4 mg SUBLINGUAL Q5M PRN #30 tab 06/09/18 Ticagrelor [Brilinta] 90 mg PO BID #60 tab 06/09/18 Following Prescrptions Were Given to Patient: Atorvastatin Calcium [Lipitor] 80 mg PO QHS #30 tab Losartan Potassium [Cozaar] 25 mg PO DAILY #30 tab Nitroglycerin [Nitrostat] 0.4 mg SUBLINGUAL Q5M PRN #30 tab PRN Reason: Cardiac/Chest Pain Metoprolol Tartrate [Lopressor (beta michael)] 12.5 mg PO BID #30 tab Ticagrelor [Brilinta] 90 mg PO BID #60 tab Other Amb Orders: Phase II, Outpatient Cardiac Rehab Location: None Selected Primary Care Physician: Care Physician,No Primary [NON-STAFF] - Please follow up with your Primary Care Physician in: PCP in [facility] in one week Please Follow Up With: Henrry Germain MD When: one week Patient Instructions: Symptoms of a Heart Attack, Discharge Instructions for Aortic Valve Stenosis, Discharge Instructions for Heart Attack Disposition: Home Minutes spent on discharge:: 45 Patient Condition:: Stable Medical Necessity - Tobacco Use Smoking Status: Never smoker Meaningful Use Info Meaningful Use Diagnoses (Choose all that apply): AMI - AMI Aspirin given w/in 24hrs of arrival?: Yes ASA at discharge?: Yes Statins at discharge?: Yes Yuri/ARB at discharge?: Yes Beta Michael at discharge?: Yes Done w/ Acute ID measure.: Yes Code Visit Inpatient E&M: 90249 Disch Hosp
--- NOTE | 2018-06-09 10:56 | PCM.PN.CARD ---
Subjectve: Patient continues to do well, no 24-hour events. No chest pain or angina. Looks much better today. EKG shows normal sinus rhythm with resolving anterior T wave inversion. Telemetry showed normal sinus rhythm with inverted T waves, rare PVCs. Right groin is clean/dry/intact. Objective: Vital Signs Temp Pulse Resp BP Pulse Ox 97.9 F 62 16 134/78 H 97 06/09/18 09:15 06/09/18 09:15 06/09/18 09:15 06/09/18 09:15 06/09/18 09:15 Oxygen Flow Rate (L/min) 4 Oxygen Delivery Method Room Air Weight: 174 lb 9.698 oz Body Mass Index (BMI) 24.6 Intake and Output for Last 24 Hours 06/07/18 06/08/18 06/09/18 23:59 23:59 23:59 Intake Total 1296 / 1296 1160 / 1160 50 / 50 Output Total 1300 / 1300 600 / 600 Balance -4 / -4 560 / 560 50 / 50 General: Awake, Alert, Oriented x 3 HEENT: PERRL, EOMI, Sclera Non Icteric Neck: Supple, Good ROM, No Lymph Node Enlargement Lungs: Clear to auscultation Cardiovascular: Regular Rhythm, Normal S2, No Rubs, No Gallops Murmur Murmur: Grade 3/6, Crescendo-Decrescendo Vascular: No Carotid Bruits, Normal Femoral Pulses, Normal Radial Pulses, Normal Dorsalis Pedal Pulse, Normal Posterior Tibial Pulses Abdomen: Bowel Sounds Present, Soft, Non Tender, No HSM, No Organomegaly Extremities: No Cyanosis, No Clubbing, No edema Neurological: No Focal Motor or Sensory Deficit 06/09/18 05:55: Sodium 140, Potassium 4.0, Chloride 105, Carbon Dioxide 27.0, Anion Gap 8, BUN 11, Creatinine 1.05, Est GFR (MDRD) Af Amer 92, Est GFR (MDRD) Non-Af 76, BUN/Creatinine Ratio 10.5, Glucose 99, Calcium 8.6 06/09/18 05:55: WBC 8.3, RBC 5.02, Hgb 15.1, Hct 44.0, MCV 87.6, MCH 30.1, MCHC 34.3, RDW 12.5, RDW Differential 38.9, Plt Count 253, MPV 9.3, Immature Gran % (Auto) 0.000, Neut % (Auto) 72.5 H, Lymph % (Auto) 13.4 L, [place] % (Auto) 13.4 H, Eos % (Auto) 0.6, Baso % (Auto) 0.1, Absolute Neuts (auto) 6.0, Total Counted Not Reportable Rhythm: EKG: ECHO: LVEF around 45-50% with mid anterior and apical hypokinesis. He appears to have severe aortic stenosis with a peak and mean gradient of 85 and 53 mmHg respectively. Valve appears to be heavily calcified, possibly bicuspid. Stress Test: Cardiac Cath: PCI: CT Surgery: Holter monitor: EPS: PPM: CXR: Chest CT Scan: Medical Necessity - Tobacco Use Smoking Status: Never smoker Assessment/Plan 1. Coronary artery disease: The patient presented yesterday with progressively worsening chest pain over the last several days with acute coronary syndrome, dynamic EKG changes, and urgent left heart catheterization with successful complex angioplasty and stenting x2 to the mid LAD and proximal LAD. He also underwent balloon angioplasty only of the ostium of the diagonal branch straddled by the mid LAD stent. He has a remaining 40-50% mid left circumflex stenosis which will be adjudicated by stress testing in the near future. His echocardiogram confirmed mid anterior apical hypokinesis with an EF around 40-50%. It also appears he has a significant calcified and fibrotic aortic valve, possibly bicuspid although difficult to interpret by superficial echo. Recommend transesophageal echocardiogram to confirm/deny the presence of significant aortic stenosis. 2. Aortic stenosis: Patient appears to have severe aortic stenosis with a peak/mean gradient of 85 and 53 mmHg respectively given an estimated aortic valvular gradient of approximately 0.82 cm?. The patient has had no sentinel events, positional lightheadedness or dizziness and is unaware of his significant aortic stenosis although he has been told he had a murmur in the past. I believe the patient would benefit from aortic valve replacement either transcutaneously or open correction. He has [employer] insurance and will refer him to Dr. James Koch for aortic valve replacement. In addition he will undergo a transesophageal echocardiogram in the next few weeks time to evaluate for possible bicuspid status. My preference would be for open resection as it appears this may be easier to undergo a repeat aortic valve replacement once his new valve deteriorates in 10-15 years. I am uncertain whether this can be done with a Tavr procedure in the future. We will hold off on cardiac rehab until after his aortic valve replacement. 3. Hyperlipidemia: Continue Lipitor therapy. Repeat lipid profile in 6 weeks time. 4. The patient be transferred to stepdown unit. Patient may be discharged home and follow-up with Dr. Germain. 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 She voiced understanding as did his , and have agreed. Code Visit Inpatient E&M: 80386 Subs Hosp L2
--- NOTE | 2018-06-09 11:05 | CASEMGMT ---
Addendum entered by Denita Saini 06/09/18 11:20: Per [facility] pharmacy, pt's styles for Brilinta today is $368.00 but she cannot clarify whether it is deductible or co-pay at this time. Brilinta card to be applied at this time. Pt updated on all at this time and aware that cardiology may need to change prescription if that ends up as his co-pay, pt/ voice understanding at this time. Pt/ voice no further questions/concerns/needs at this time. Wai MARTÍNEZ CM Original Note: Brilinta card tubed to [facility] retail pharmacy at this time. Pt/ aware, voice understanding. Wai MARTÍNEZ CM
== END 2018-06-09 11:16 | disposition home or self-care (01) | DRG 247 ==
LOC: ED 12:01 → ICU 13:25 → PCU 06-08 13:13
PROVIDERS: Internal Medicine Cardiovascular Disease; Admitting Provider Internal Medicine; Emergency Provider Emergency Medicine; Referring Provider Internal Medicine; Visit Provider Student in an Organized Health Care Education/Training Program
DX: I24.9 Acute ischemic heart disease, unspecified (principal); Q23.1 Congenital insufficiency of aortic valve; I25.10 Atherosclerotic heart disease of native coronary artery without angina pectoris; Z87.891 Personal history of nicotine dependence; E87.6 Hypokalemia; R73.9 Hyperglycemia, unspecified; Z92.3 Personal history of irradiation; I35.0 Nonrheumatic aortic (valve) stenosis; E78.5 Hyperlipidemia, unspecified; I25.5 Ischemic cardiomyopathy; Z85.46 Personal history of malignant neoplasm of prostate; I10 Essential (primary) hypertension
CPT/HCPCS: 36415; 71045; 80048; 80061; 82962; 83036; 84443; 84484; 85025; 85027; 85347; 85610; 85730; 92921; 92928; 93005; 93306; 93458; 99284; J7030; Q9957; Q9967; A4216; C1725; C1769; C1874; C1887; C1894; C8929; C9600; J2405

== ENCOUNTER 2018-06-22 09:02 | Outpatient (CLI) | payer OTHER, SELFPAY ==
[2018-06-07 14:02] VITALS: BMI 24.6
[2018-06-20 10:45] VITALS: BMI 23.9
--- NOTE | 2018-06-22 09:05 | ECHOTEE_ITS ---
Reason For Study: Valve Replacement Eval Medication ANALISA probe passed without difficulty. No complications were noted. [id number] gargled and swallowed. Cetacaine Topical [place] given X3 orally. Fentanyl 50 mcg given slow IVP. Versed 2 mg given slow IVP. Performed a rapid injection of agitated mix of 9 cc saline and 1cc air to assess for atrial septal defect. Left Ventricle Normal size and thickness. The estimated ejection fraction is 65 %. No regional wall motion abnormalities noted. Right Ventricle Normal size and thickness. The right ventricular wall motion is normal. Atria Normal atrial septum. Bubble contrast study negative for right to left interatrial shunt. Normal left atrium. Normal right atrium. Mitral Valve The mitral valve is structurally normal. No prolapse or stenosis seen. Trivial mitral valve insufficiency. Tricuspid Valve Normal tricuspid valve. Unable to estimate RV systolic pressure due to inadequate jet, pulmonary artery pressure probably normal. Aortic Valve Bicuspid aortic valve. Severe focal aortic valve thickening. Moderate focal aortic valve calcification. Severe restriction of the aortic valve. Critical aortic stenosis. Peak aortic valve gradient 76 mmHg. Mean aortic valve gradient 45 mmHg. Calculated aortic valve area (continuity equation) is 0.75 cm2. Pulmonic Valve Normal pulmonic valve. Trivial pulmonic valve insufficiency. Vessels Normal aortic root. Normal arch. Mild atherosclerosis of the aortic arch. The pulmonary artery is normal size. Normal pulmonary veins. Pericardium No pericardial effusion. MMode/2D Measurements & Calculations LVOT diam: 2.7 cm Aortic Valve Planimetry: 0.75 cm2 LVOT area: 5.6 cm2 Doppler Measurements & Calculations Ao V2 max: 361.9 cm/sec Ao V2 mean: 258.1 cm/sec Ao V2 VTI: 72.6 cm Interpretation Summary The estimated ejection fraction is 65 %. Bubble contrast study negative for right to left interatrial shunt. Trivial mitral valve insufficiency. Unable to estimate RV systolic pressure due to inadequate jet, pulmonary artery pressure probably normal. Bicuspid aortic valve with fusion of the right and non coronary cusps. Severe restriction of the aortic valve. Severe to critical aortic stenosis. Peak aortic valve gradient 76 mmHg. Mean aortic valve gradient 45 mmHg. Calculated aortic valve area (continuity equation) is 0.75 cm2. Estimated LVOT diameter of 2.6 cm. Ordering Physician: Henrry Germain Referring Physician: Henrry Germain Performed By: Sarah Mirza RDCS, RVT
== END 2018-06-22 11:00 | disposition home or self-care (01) ==
LOC: CVS 09:03
PROVIDERS: Referring Provider Internal Medicine Cardiovascular Disease; Visit Provider Internal Medicine Cardiovascular Disease
DX: I35.0 Nonrheumatic aortic (valve) stenosis (principal); Q23.1 Congenital insufficiency of aortic valve
CPT/HCPCS: 93312; 93320; 93325; J7040; A4216